=== PATIENT | male | born 1995 | race African-American/Black ===

== ENCOUNTER 2017-09-18 15:15 | Emergency (ER) | payer BC ==
[~2017-09-18] VITALS: Ht 182.9 cm; Wt 89.0 kg
[2017-09-18 15:18] VITALS: Ht 182.9 cm; Wt 89.0 kg
== END 2017-09-18 16:15 | disposition left against medical advice (07) ==
LOC: FTE 15:15
DX: Z53.21 Procedure and treatment not carried out due to patient leaving prior to being seen by health care provider (principal)